=== PATIENT | female | born 1970 | race Caucasian/White ===

== ENCOUNTER 2018-05-26 06:37 | Day surgery (SDC) | payer OTHER ==
[~2018-05-26] VITALS: Ht 165.1 cm; Wt 71.3 kg
[2018-05-26] MEDS ORDERED: BUPIVACAINE/PF 0.5% ONE (06:54)
[2018-05-26] MEDS ORDERED: EPINEPHRINE 1 MG/ML, 1ML ONE (06:54)
[2018-05-26] MEDS ORDERED: LACTATED RINGERS 1,000 ML IV SCH (07:16)
[2018-05-26] MEDS ORDERED: NONE PER PT (07:35)
[2018-05-26 07:36] VITALS: BP 110/71
[2018-05-26] MEDS ORDERED: GABAPENTIN 300 MG CAPSULE PO STA (08:09)
[2018-05-26] MEDS ORDERED: MIDAZOLAM 1 MG/ML, 2ML ONE (08:12)
[2018-05-26] MEDS ORDERED: ONDANSETRON 2MG/ML, 2ML ONE ×2 (08:12)
[2018-05-26] MEDS ORDERED: DEXAMETHASONE 4 MG/ML, 1ML ONE (08:12)
[2018-05-26] MEDS ORDERED: FENTANYL PF 100 MCG/2ML ONE ×2 (08:12→09:13)
[2018-05-26] MEDS ORDERED: PROPOFOL 10 MG/ML, 20ML ONE (08:13)
[2018-05-26] MEDS ORDERED: SUCCINYLCHOLINE 20 MG/ML, 10ML ONE (08:20)
[2018-05-26] MEDS ORDERED: CEFAZOLIN 1,000 MG ONE (08:20)
[2018-05-26] MEDS ORDERED: KETOROLAC 30 MG/1 ML ONE (08:20)
[2018-05-26] MEDS ORDERED: ONDANSETRON ODT 8 MG PO ONE (08:30)
[2018-05-26] MEDS ORDERED: SCOPOLAMINE PATCH, 1.5MG PATCH.TD72 TD ONE (08:30)
[2018-05-26] MEDS ORDERED: ACETAMINOPHEN 500 MG TABLET PO ONE (08:30)
[2018-05-26] MEDS ORDERED: NEOSPORIN OINT, 15GM ONE (08:46)
[2018-05-26] MEDS ORDERED: MIDAZOLAM 1 MG/ML, 2ML IV PRN (09:00)
[2018-05-26] MEDS ORDERED: PROMETHAZINE 12.5 MG SUPP PR PRN (09:00)
[2018-05-26] MEDS ORDERED: DIAZEPAM 5 MG/ML, 2ML IVPush PRN (09:00)
[2018-05-26] MEDS ORDERED: hydrALAzine 20 MG/ML, 1ML IV PRN (09:00)
[2018-05-26] MEDS ORDERED: ACETAMINOPHEN 325 MG TABLET PO PRN (09:00)
[2018-05-26] MEDS ORDERED: ONDANSETRON ODT 8 MG PO PRN (09:00)
[2018-05-26] MEDS ORDERED: HYDROmorphone 1 MG/ML, 1ML IV PRN (09:00)
[2018-05-26] MEDS ORDERED: HALOPERIDOL 5 MG/ML IV PRN (09:00)
[2018-05-26] MEDS ORDERED: ONDANSETRON 2MG/ML, 2ML IV PRN (09:00)
[2018-05-26] MEDS ORDERED: ALBUTEROL SULFATE 2.5 MG/3 ML NPPB PRN (09:00)
[2018-05-26] MEDS ORDERED: LABETALOL 5MG/ML, 20ML IV PRN (09:00)
[2018-05-26] MEDS ORDERED: OXYcodone 5 MG/5 ML ORAL.SOL UDC PO PRN (09:00)
[2018-05-26] MEDS ORDERED: PROMETHAZINE 25 MG/ML, 1ML IV PRN (09:00)
[2018-05-26] MEDS ORDERED: EPHEDRINE 50 MG/ML, 1ML IVPush PRN (09:00)
[2018-05-26] MEDS ORDERED: OXYcodone 5 MG/5 ML ORAL.SOL UDC ONE (09:13)
[2018-05-26] MEDS: FENTANYL PF 100 MCG/2ML IV PRN ×3 (09:15→09:40)
[2018-05-26] MEDS ORDERED: MORPHINE SULFATE 4 MG/ML, 1ML ONE (09:18)
[2018-05-26] MEDS: MORPHINE SULFATE 4 MG/ML, 1ML IVPush PRN ×2 (09:20→09:50)
[2018-05-26] MEDS ORDERED: MEPERIDINE/PF 50 MG/ML ONE (09:23)
[2018-05-26] MEDS: MEPERIDINE/PF 25MG/0.5ML IVPush PRN ×2 (09:25→09:59)
== END 2018-05-26 12:10 | disposition home or self-care (01) ==
LOC: OUT 06:37
PROVIDERS: ATTEND Orthopaedic Surgery
DX: S52.591A Other fractures of lower end of right radius, initial encounter for closed fracture (principal); W19.XXXA Unspecified fall, initial encounter; Y93.89 Activity, other specified; Y92.89 Other specified places as the place of occurrence of the external cause; Y99.8 Other external cause status; Z88.5 Allergy status to narcotic agent; Z88.0 Allergy status to penicillin; Z98.890 Other specified postprocedural states; Z79.899 Other long term (current) drug therapy
CPT/HCPCS: 25607; 73100; 76000; C1713; J0171; J0330; J0690; J1100; J1885; J2175; J2250; J2405; J2704; J3010; J3490; J7120; Q0162

== ENCOUNTER 2019-05-20 10:49 | Day surgery (SDC) | payer OTHER ==
[~2019-05-20] VITALS: Ht 165.1 cm; Wt 67.0 kg
[~2019-05-20 10:49] MED LIST: NONE PER PT
[2019-05-20 11:15] VITALS: BP 105/69
[2019-05-20] MEDS ORDERED: LACTATED RINGERS 1,000 ML IV SCH (11:59)
[2019-05-20] MEDS ORDERED: MIDAZOLAM 1 MG/ML, 2ML ONE (12:42)
[2019-05-20] MEDS ORDERED: FENTANYL PF 250 MCG/5ML ONE (12:42)
[2019-05-20] MEDS ORDERED: LABETALOL 5MG/ML, 20ML IV PRN (13:00)
[2019-05-20] MEDS ORDERED: hydrALAzine 20 MG/ML, 1ML IV PRN (13:00)
[2019-05-20] MEDS ORDERED: OXYcodone 5 MG/5 ML ORAL.SOL UDC PO PRN (13:00)
[2019-05-20] MEDS ORDERED: ACETAMINOPHEN 325 MG TABLET PO PRN (13:00)
[2019-05-20] MEDS ORDERED: PROMETHAZINE 25 MG/ML, 1ML IV PRN (13:00)
[2019-05-20] MEDS ORDERED: MEPERIDINE/PF 25MG/ML,1ML IVPush PRN (13:00)
[2019-05-20] MEDS ORDERED: ONDANSETRON 2MG/ML, 2ML IV PRN (13:00)
[2019-05-20] MEDS ORDERED: SCOPOLAMINE PATCH, 1.5MG PATCH.TD72 TD ONE (13:09)
[2019-05-20] MEDS ORDERED: PROPOFOL 50 ML ONE (13:10)
[2019-05-20] MEDS ORDERED: BACITRACIN 50,000 UNIT ONE (13:10)
[2019-05-20] MEDS ORDERED: EPINEPHRINE 1 MG/ML, 1ML ONE (13:10)
[2019-05-20] MEDS ORDERED: BUPIVACAINE/PF 0.5% ONE (13:10)
[2019-05-20] MEDS ORDERED: DEXAMETHASONE 4 MG/ML, 1ML ONE ×2 (13:37)
[2019-05-20] MEDS ORDERED: CEFAZOLIN 1,000 MG ONE (13:39)
[2019-05-20] MEDS ORDERED: KETOROLAC 30 MG/1 ML ONE (14:03)
[2019-05-20] MEDS ORDERED: PROPOFOL 10 MG/ML, 20ML ONE (14:09)
[2019-05-20] MEDS ORDERED: ONDANSETRON 2MG/ML, 2ML ONE (14:21)
[2019-05-20] MEDS ORDERED: OXYcodone 5 MG/5 ML ORAL.SOL UDC ONE (14:55)
[2019-05-20] MEDS ORDERED: ACETAMINOPHEN 650 MG/20.3 ML UDC ONE (14:55)
[2019-05-20] MEDS ORDERED: FENTANYL PF 100 MCG/2ML ONE (14:55)
[2019-05-20] MEDS: FENTANYL PF 100 MCG/2ML IV PRN ×2 (14:57→15:03)
[2019-05-20] MEDS ORDERED: HYDROmorphone 1 MG/ML, 1ML VIAL ONE (15:18)
[2019-05-20] MEDS: HYDROmorphone 1 MG/ML, 1ML VIAL IVPush PRN ×2 (15:19→15:25)
== END 2019-05-20 17:15 | disposition home or self-care (01) ==
LOC: OR 10:49
PROVIDERS: ATTEND Orthopaedic Surgery
DX: T84.89XA Other specified complication of internal orthopedic prosthetic devices, implants and grafts, initial encounter (principal); S66.811A Strain of other specified muscles, fascia and tendons at wrist and hand level, right hand, initial encounter; M79.7 Fibromyalgia; Z79.899 Other long term (current) drug therapy; Z88.0 Allergy status to penicillin; Z82.61 Family history of arthritis; X58.XXXA Exposure to other specified factors, initial encounter; Y93.89 Activity, other specified; Y92.89 Other specified places as the place of occurrence of the external cause; Y99.8 Other external cause status; Y83.8 Other surgical procedures as the cause of abnormal reaction of the patient, or of later complication, without mention of misadventure at the time of the procedure
CPT/HCPCS: 20680; 25310; C1713; J0171; J0690; J1100; J1170; J1885; J2250; J2405; J2704; J3010; J7120